=== PATIENT | male | born 1980 | race Caucasian/White ===

== ENCOUNTER 2017-09-16 16:37 | Emergency (ER) | payer OTHER ==
--- NOTE | 2017-09-16 18:05 | EDM.PDOC ---
ED HPI GENERAL MEDICAL PROBLEM - General Chief Complaint: Cardiovascular Problem Stated Complaint: HIGH BP Time Seen by Provider: 09/16/17 17:05 Source of Information: Reports: Patient History Limitations: Reports: No Limitations - History of Present Illness INITIAL COMMENTS - FREE TEXT/NARRATIVE: 37-year-old male presents for evaluation and treatment of high blood pressure. Patient reports over the last few days his blood pressure has been higher than normal. Reports a systolic of 155-159/84 last night. Patient reports the night before last, while he was sleeping, heart rate of 155. He states that when he awoke yesterday morning he had a notification on his Apple watch that his heart rate was 155 while he was sleeping. He is unsure exactly how long this lasted for. Of note he was drinking alcohol earlier that night. However, he did state that he "felt terrible "that night. Patient is currently complaining of discomfort to the left armpit. He states when he is high blood pressure he can feel it in his arms, legs and hips. He also reports that his fingertips feel numb. He states that he feels dizzy and fatigued. He denies any chest pain but reports a pressure. Reports shortness of breath that comes and goes. Denies any nausea, vomiting or syncope. He states that his face feels flushed and he has pressure behind his eyes. Patient does not have a primary care provider. He is not currently on any medications. Patient reports that over the last year he has switched jobs and now is more sedentary job. He states that he has gained about 30 pounds over the last year. 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 [No Known Home Meds] 09/16/17 [History] Past Medical History - Past Health History Medical/Surgical History: Denies Medical/Surgical History Social & Family History - Recreational Drug Use Recreational Drug Use: No ED ROS GENERAL - Review of Systems Review Of Systems: See Below Constitutional: Reports: Malaise, Fatigue, Weight Gain (30lbs over the last year ) Respiratory: Denies: Shortness of Breath Cardiovascular: Reports: Blood Pressure Problem. Denies: Chest Pain (denies pain but reports a pressure) GI/Abdominal: Denies: Nausea, Vomiting Skin: Reports: Erythema (reports feeling his face is flushed) Neurological: Reports: Dizziness, Numbness (finger tips). Denies: Headache ( reports pressure behind eyes), Syncope ED EXAM, GENERAL - Physical Exam Exam: See Below Exam Limited By: No Limitations General Appearance: Alert, WD/WN, No Apparent Distress Eye Exam: Bilateral Eye: Normal Inspection Ears: Normal External Exam Nose: Normal Inspection Throat/Mouth: Normal Inspection, Normal Lips, Normal Voice, No Airway Compromise Respiratory/Chest: No Respiratory Distress, Lungs Clear, Normal Breath Sounds Cardiovascular: Normal Peripheral Pulses, Regular Rate, Rhythm, No Murmur Peripheral Pulses: 2+: Radial (L), Radial (R) GI/Abdominal: Soft, Non-Tender Neurological: Alert, Oriented, Normal Cognition Psychiatric: Normal Affect, Normal Mood Skin Exam: Warm, Dry, Normal Color Course - Vital Signs Last Recorded V/S: Last Vital Signs Temp 36.6 C 09/16/17 16:49 Pulse 97 09/16/17 16:49 Resp 17 09/16/17 16:49 BP 136/86 09/16/17 16:49 Pulse Ox 96 09/16/17 16:49 Orthostatic Blood Pressure [ 117/95 Standing] Orthostatic Blood Pressure [ 122/83 Sitting] Orthostatic Blood Pressure [ 116/67 Supine] - Orders/Labs/Meds Labs: Laboratory Tests 09/16/17 09/16/17 Range/Units 17:55 17:55 WBC 8.66 (4.23-9.07) K/mm3 RBC 4.67 (4.63-6.08) M/mm3 Hgb 14.3 (13.7-17.5) gm/L Hct 41.6 (40.1-51.0) % MCV 89.1 (79.0-92.2) fl MCH 30.6 (25.7-32.2) pg MCHC 34.4 (32.2-35.5) g/dl RDW Std Deviation 43.3 (35.1-43.9) fL Plt Count 276 (163-337) K/mm3 MPV 9.0 L (9.4-12.3) fl Neut % (Auto) 51.3 (34.0-67.9) % Lymph % (Auto) 34.6 (21.8-53.1) % [place] % (Auto) 11.9 (5.3-12.2) % Eos % (Auto) 1.8 (0.8-7.0) Baso % (Auto) 0.3 (0.1-1.2) % Neut # (Auto) 4.43 (1.78-5.38) K/mm3 Lymph # (Auto) 3.00 (1.32-3.57) K/mm3 [place] # (Auto) 1.03 H (0.30-0.82) K/mm3 Eos # (Auto) 0.16 (0.04-0.54) K/mm3 Baso # (Auto) 0.03 (0.01-0.08) K/mm3 Sodium 141 (136-145) mEq/L Potassium 3.9 (3.5-5.1) mEq/L Chloride 106 (98-107) mEq/L Carbon Dioxide 26 (21-32) mEq/L Anion Gap 12.9 (5-15) BUN 19 H (7-18) mg/dL Creatinine 1.0 (0.7-1.3) mg/dL Est Cr Clr Drug Dosing 108.86 mL/min Estimated GFR (MDRD) > 60 (>60) mL/min BUN/Creatinine Ratio 19.0 H (14-18) Glucose 117 H (74-106) mg/dL Calcium 9.4 (8.5-10.1) mg/dL Total Bilirubin 0.3 (0.2-1.0) mg/dL AST 26 (15-37) U/L ALT 54 (16-63) U/L Alkaline Phosphatase 69 (46-116) U/L CK-MB (CK-2) 0.8 (0-3.6) ng/ml Troponin I < 0.017 (0.00-0.056) ng/mL Total Protein 6.7 (6.4-8.2) g/dl Albumin 4.0 (3.4-5.0) g/dl Globulin 2.7 gm/dL Albumin/Globulin Ratio 1.5 (1-2) TSH 3rd Generation 1.015 (0.358-3.74) uIU/mL - Radiology Interpretation Free Text/Narrative:: Chest x-ray shows no acute intrathoracic process. - Re-Assessments/Exams Free Text/Narrative Re-Assessment/Exam: 09/16/17 19:40 I reviewed the labs, EKG and chest x-ray with the patient. His blood pressure has come down significantly without any intervention. Systolic in the 120s to 110s. I encouraged him to check his blood pressure daily, record this and establish with a primary care provider. Discharge instructions as documented. Departure - Departure Time of Disposition: 19:43 Disposition: Home, Self-Care 01 Condition: Fair Clinical Impression: High blood pressure Instructions: Hypertension, [id number] Referrals: PCP,None [Primary Care Provider] - Marc Vogel PA-C [Physician [employer] Sewing Machine Operator] - Forms: ED Department Discharge Additional Instructions: Recommend checking your blood pressure daily and recording this. Recommend establishing with a primary care provider. Follow-up with them within 2 weeks for recheck of your symptoms. Recommend Marc Vogel PA-C at the [facility]. Call [phone] to schedule with him. Please return to the ER if symptoms change or worsen.
--- NOTE | 2017-09-17 06:36 | CR ---
Chest: Portable view of the chest was obtained. Comparison: Prior chest x-ray of 06/10/11. Heart size and mediastinum are normal. Lungs are clear. Bony structures are grossly intact. Impression: 1. Nothing acute is identified on portable chest x-ray. Diagnostic code #1
== END 2017-09-16 19:54 | disposition home or self-care (01) ==
LOC: JD.ED 16:37
DX: R03.0 Elevated blood-pressure reading, without diagnosis of hypertension (principal)
CPT/HCPCS: 36415; 71045; 71045-26; 80053; 82553; 84443; 84484; 85025; 93005; 99284-25

== ENCOUNTER 2019-09-27 16:32 | Emergency (ER) | payer BC, OTHER ==
[2019-09-27] MEDS: Sodium Chloride 0.9% 10 ML Syringe FLUSH PRN ×3 (17:12→20:10)
--- NOTE | 2019-09-27 17:40 | CR ---
Chest: 2 views of the chest were obtained. Comparison: Prior chest x-ray of 09/16/17. Heart size and mediastinum are normal. Lungs are clear with no acute parenchymal change. Bony structures appear unremarkable. Impression: 1. Nothing acute is appreciated on 2 view chest x-ray. Diagnostic code #1 Study was dictated in [place] Standard Time
[2019-09-27] MEDS ORDERED: Iopamidol 755 Mg/ML 100 ML Bottle IVPUSH ONE ×2 (18:12→20:09)
[2019-09-27] MEDS ORDERED: Sodium Chloride 0.9% 10 ML Syringe FLUSH PRN ×2 (18:12→20:09)
[2019-09-27] MEDS: Sodium Chloride 0.9% 100 ML IV SCH ×2 (18:57→20:10)
--- NOTE | 2019-09-27 19:17 | EDM.PDOC ---
ED HPI GENERAL MEDICAL PROBLEM - General Chief Complaint: Chest Pain Stated Complaint: CHEST PAIN Time Seen by Provider: 09/27/19 16:47 Source of Information: Reports: Patient History Limitations: Reports: No Limitations - History of Present Illness INITIAL COMMENTS - FREE TEXT/NARRATIVE: The patient presents with left sided chest pain. He also has pain to his left neck and arm. This has been coming and going for about a week. He has some shortness of breath at times. He has no fever, chills, cough, congestion, runny nose, abdominal pain, nausea or vomiting. He has no history of heart problems but he does have a family history. He has no history of DVT or PE. Onset: Gradual Duration: Week(s): Location: Reports: Chest Quality: Reports: Sharp Severity: Moderate Improves with: Reports: None Worsens with: Reports: None Associated Symptoms: Reports: Chest Pain. Denies: Cough, Fever/Chills, Headaches, Nausea/Vomiting, Shortness of Breath Left Upper Chest Pain Score (Numeric/FACES): 5 - Related Data Allergies Allergy/AdvReac Type Severity Reaction Status Date / Time Sulfa (Sulfonamide Allergy Hives Verified 09/27/19 16:48 Antibiotics) Home Meds: Home Meds . [No Known Home Meds] 09/16/17 [History] Past Medical History - Past Health History Medical/Surgical History: Denies Medical/Surgical History Cardiovascular History: Reports: Other (See Below) Other Cardiovascular History: pleurisy Social & Family History - Tobacco Use Smoking Status *Q: Never Smoker - Recreational Drug Use Recreational Drug Use: No ED ROS GENERAL - Review of Systems Review Of Systems: See Below Constitutional: Reports: No Symptoms HEENT: Reports: No Symptoms Respiratory: Reports: No Symptoms Cardiovascular: Reports: Chest Pain Endocrine: Reports: No Symptoms GI/Abdominal: Reports: No Symptoms : Reports: No Symptoms Musculoskeletal: Reports: No Symptoms ED EXAM, GENERAL - Physical Exam Exam: See Below Exam Limited By: No Limitations General Appearance: Alert, No Apparent Distress Ears: Normal External Exam Nose: Normal Inspection Head: Atraumatic, Normocephalic Neck: Normal Inspection Respiratory/Chest: No Respiratory Distress, Lungs Clear, Normal Breath Sounds Cardiovascular: Regular Rate, Rhythm, No Edema, No Murmur GI/Abdominal: Soft, Non-Tender, No Organomegaly, No Mass Back Exam: Normal Inspection Extremities: Normal Inspection Neurological: Alert, Oriented, No Motor/Sensory Deficits EKG INTERPRETATION EKG Date: 09/27/19 Time: 16:59 Rhythm: NSR Rate (Beats/Min): 92 [place]: Normal P-Wave: Present QRS: Normal ST-T: Normal QT: Normal Course - Vital Signs Last Recorded V/S: Last Vital Signs Temp 98.9 F 09/27/19 16:45 Pulse 90 09/27/19 16:45 Resp 16 09/27/19 16:45 BP 169/109 H 09/27/19 16:45 Pulse Ox 99 09/27/19 16:45 - Orders/Labs/Meds Orders: Active Orders 24 hr Category Date Time Status Cardiac Monitoring [RC] . DIRECTED Care 09/27/19 16:51 Active EKG Documentation Completion [RC] STAT Care 09/27/19 16:51 Active Peripheral IV Care [RC] . DIRECTED Care 09/27/19 16:51 Active Sodium Chloride 0.9% [Normal Saline] 100 ml Med 09/27/19 18:15 Active IV ASDIRECTED Sodium Chloride 0.9% [Normal Saline] 100 ml Med 09/27/19 20:15 Active IV ASDIRECTED Sodium Chloride 0.9% [Saline Flush] Med 09/27/19 16:51 Active 10 ml FLUSH ASDIRECTED PRN Sodium Chloride 0.9% [Saline Flush] Med 09/27/19 18:12 Active 10 ml FLUSH ONETIME PRN Sodium Chloride 0.9% [Saline Flush] Med 09/27/19 20:09 Active 10 ml FLUSH ONETIME PRN Peripheral IV Insertion Adult [OM.PC] Stat Oth 09/27/19 16:51 Ordered Medication Orders Sodium Chloride (Normal Saline) 100 mls @ 60 mls/hr IV ASDIRECTED MAYCOL Last Admin: 09/27/19 20:10 Dose: 60 mls/hr Infusion: 09/27/19 20:10 Dose: 60 mls/hr Admin: 09/27/19 18:57 Dose: 60 mls/hr Sodium Chloride (Normal Saline) 100 mls @ 60 mls/hr IV ASDIRECTED MAYCOL Sodium Chloride (Saline Flush) 10 ml FLUSH ASDIRECTED PRN PRN Reason: Keep Vein Open Last Admin: 09/27/19 20:10 Dose: 10 ml Admin: 09/27/19 18:57 Dose: 10 ml Admin: 09/27/19 17:12 Dose: 10 ml Sodium Chloride (Saline Flush) 10 ml FLUSH ONETIME PRN PRN Reason: Keep Vein Open Sodium Chloride (Saline Flush) 10 ml FLUSH ONETIME PRN PRN Reason: Keep Vein Open Labs: Laboratory Tests 09/27/19 09/27/19 09/27/19 Range/Units 16:58 16:58 16:58 WBC 7.75 (4.23-9.07) K/mm3 RBC 4.82 (4.63-6.08) M/mm3 Hgb 14.9 (13.7-17.5) gm/dl Hct 43.6 (40.1-51.0) % MCV 90.5 (79.0-92.2) fl MCH 30.9 (25.7-32.2) pg MCHC 34.2 (32.2-35.5) g/dl RDW Std Deviation 43.7 (35.1-43.9) fL Plt Count 285 (163-337) K/mm3 MPV 8.9 L (9.4-12.3) fl Neut % (Auto) 47.7 (34.0-67.9) % Lymph % (Auto) 37.0 (21.8-53.1) % [place] % (Auto) 12.3 H (5.3-12.2) % Eos % (Auto) 2.6 (0.8-7.0) Baso % (Auto) 0.3 (0.1-1.2) % Neut # (Auto) 3.70 (1.78-5.38) K/mm3 Lymph # (Auto) 2.87 (1.32-3.57) K/mm3 [place] # (Auto) 0.95 H (0.30-0.82) K/mm3 Eos # (Auto) 0.20 (0.04-0.54) K/mm3 Baso # (Auto) 0.02 (0.01-0.08) K/mm3 D-Dimer, Quantitative 0.70 H (0.19-0.50) mg/L Sodium 140 (136-145) mEq/L Potassium 3.6 (3.5-5.1) mEq/L Chloride 102 (98-107) mEq/L Carbon Dioxide 29 (21-32) mEq/L Anion Gap 12.6 (5-15) BUN 22 H (7-18) mg/dL Creatinine 1.2 (0.7-1.3) mg/dL Est Cr Clr Drug Dosing 88.92 mL/min Estimated GFR (MDRD) > 60 (>60) mL/min BUN/Creatinine Ratio 18.3 H (14-18) Glucose 112 H (74-106) mg/dL Calcium 9.1 (8.5-10.1) mg/dL Total Bilirubin 0.3 (0.2-1.0) mg/dL AST 21 (15-37) U/L ALT 53 (16-63) U/L Alkaline Phosphatase 75 (46-116) U/L Troponin I < 0.017 (0.00-0.056) ng/mL Total Protein 7.3 (6.4-8.2) g/dl Albumin 4.0 (3.4-5.0) g/dl Globulin 3.3 gm/dL Albumin/Globulin Ratio 1.2 (1-2) Meds: Medications Generic Name Dose Route Start Last Admin Trade Name Freq PRN Reason Stop Dose Admin Sodium Chloride 100 mls @ 60 mls/hr 09/27/19 18:15 09/27/19 20:10 Normal Saline IV 60 mls/hr ASDIRECTED MAYCOL Administration Sodium Chloride 100 mls @ 60 mls/hr 09/27/19 20:15 Normal Saline IV ASDIRECTED MAYCOL Sodium Chloride 10 ml 09/27/19 16:51 09/27/19 20:10 Saline Flush FLUSH 10 ml ASDIRECTED PRN Administration Keep Vein Open Sodium Chloride 10 ml 09/27/19 18:12 Saline Flush FLUSH ONETIME PRN Keep Vein Open Sodium Chloride 10 ml 09/27/19 20:09 Saline Flush FLUSH ONETIME PRN Keep Vein Open Discontinued Medications Generic Name Dose Route Start Last Admin Trade Name Freq PRN Reason Stop Dose Admin Iopamidol 100 ml 09/27/19 18:12 09/27/19 18:57 [id number] (76%) IVPUSH 09/27/19 18:13 100 ml ONETIME ONE Administration Iopamidol 100 ml 09/27/19 20:09 09/27/19 20:10 [id number] (76%) IVPUSH 09/27/19 20:10 100 ml ONETIME ONE Administration - Re-Assessments/Exams Free Text/Narrative Re-Assessment/Exam: 09/27/19 19:19 I ordered an IV saline lock, EKG, CXR and labs. His EKG shows a NSR with no acute changes. His CXR looks good. His CBC and CMP look good. His troponin is negative. His D-dimer was elevated at 0.7. I have ordered a CT angio of his chest. 09/27/19 20:[address] shows no findings of pulmonary emboli within the main or segmental branches. Smaller distal subsegmental pulmonary emboli could be missed. Nothing acute is appreciated on CT study of the chest. Departure - Departure Time of Disposition: 20:30 Disposition: Home, Self-Care 01 Condition: Good Clinical Impression: Atypical chest pain, Pleurisy Referrals: PCP,Chayito [Primary Care Provider] - Nisreen Zambrano EHS ENGINEER [Nurse Practitioner] - 1 Week Forms: ED Department Discharge Additional Instructions: Take tylenol or motrin for pain. Follow up with Nisreen Zambrano within a week. Please return if you are worse. Sepsis Event Note - Evaluation Sepsis Screening Result: No Definite Risk - Focused Exam Vital Signs: Vital Signs Temp Pulse Resp BP Pulse Ox 09/27/19 16:45 98.9 F 90 16 169/109 H 99 Date Exam was Performed: 09/27/19 Time Exam was Performed: 20:16 - My Orders Last 24 Hours: My Active Orders 09/27/19 16:51 Cardiac Monitoring [RC] . DIRECTED EKG Documentation Completion [RC] STAT Peripheral IV Care [RC] . DIRECTED Sodium Chloride 0.9% [Saline Flush] 10 ml FLUSH ASDIRECTED PRN Peripheral IV Insertion Adult [OM.PC] Stat 09/27/19 18:12 Sodium Chloride 0.9% [Saline Flush] 10 ml FLUSH ONETIME PRN 09/27/19 18:15 Sodium Chloride 0.9% [Normal Saline] 100 ml IV ASDIRECTED 09/27/19 20:09 Sodium Chloride 0.9% [Saline Flush] 10 ml FLUSH ONETIME PRN 09/27/19 20:15 Sodium Chloride 0.9% [Normal Saline] 100 ml IV ASDIRECTED - Assessment/Plan Last 24 Hours: My Active Orders 09/27/19 16:51 Cardiac Monitoring [RC] . DIRECTED EKG Documentation Completion [RC] STAT Peripheral IV Care [RC] . DIRECTED Sodium Chloride 0.9% [Saline Flush] 10 ml FLUSH ASDIRECTED PRN Peripheral IV Insertion Adult [OM.PC] Stat 09/27/19 18:12 Sodium Chloride 0.9% [Saline Flush] 10 ml FLUSH ONETIME PRN 09/27/19 18:15 Sodium Chloride 0.9% [Normal Saline] 100 ml IV ASDIRECTED 09/27/19 20:09 Sodium Chloride 0.9% [Saline Flush] 10 ml FLUSH ONETIME PRN 09/27/19 20:15 Sodium Chloride 0.9% [Normal Saline] 100 ml IV ASDIRECTED
--- NOTE | 2019-09-27 20:11 | CT ---
CT chest Technique: Multiple axial sections through the chest were obtained. Initial study had difficulties with the IV resulting in suboptimal pulmonary artery opacification. Study was repeated. Findings: Pulmonary arteries are moderately well-opacified. No filling defects are seen within the main or segmental branches. Smaller distal subsegmental pulmonary emboli could be missed. Aorta shows no aneurysm. No pericardial thickening is seen. Visualized upper abdominal structures shows no discrete abnormality. Lungs are clear. No acute parenchymal change is appreciated. No pleural effusions are noted. Bone window settings were reviewed which shows no acute bony finding. Impression: 1. No findings of pulmonary emboli within the main or segmental branches. Smaller distal subsegmental pulmonary emboli could be missed. 2. Nothing acute is appreciated on CT study of the chest. Diagnostic code #1 Study was dictated in [place] Standard Time
[2019-09-27] MEDS ORDERED: Sodium Chloride 0.9% 100 ML IV SCH (20:15)
== END 2019-09-27 20:20 | disposition home or self-care (01) ==
LOC: JD.ED 16:32
DX: R09.1 Pleurisy (principal); Z88.2 Allergy status to sulfonamides
CPT/HCPCS: 36415; 71046; 71275; 80053; 84484; 85025; 85379; 93005; 99285; J7050; Q9967; 93010; 99284

== ENCOUNTER 2020-06-04 11:57 | Emergency (ER) | payer BC ==
[2020-06-04] MEDS ORDERED: Diphtheria,Pertussis(Acell),Tetanus Vaccine 0.5 ML Syringe IM ONE (12:42)
[2020-06-04] MEDS ORDERED: Lidocaine 1% 10 ML MDV INJECT ONE (12:42)
--- NOTE | 2020-06-04 12:49 | EDM.PDOC ---
ED HPI GENERAL MEDICAL PROBLEM - General Chief Complaint: Laceration Stated Complaint: LT INDEX FINGER LAC Time Seen by Provider: 06/04/20 12:19 Source of Information: Reports: Patient, RN Notes Reviewed History Limitations: Reports: No Limitations - History of Present Illness INITIAL COMMENTS - FREE TEXT/NARRATIVE: Patient is a 39-year-old male who presents to the ED for evaluation of a left index finger laceration. He states that 1 hour prior to arrival, he was putting 10 on his roof, and ended up catching the backside of his left pointer finger with a piece of 10. This resulted in a roughly 4.5 cm laceration that is V- shaped, this starts on the medial portion of the posterior index finger, extends down to just by the DIP joint, and then extends distally down the fingertip, and this involves the most lateral portion of the nail. Patient has no numbness or tingling in the area, states he still can move his finger in all range of motion, he does have good strength, there is no obvious tendon involvement at this time. Patient notes he is not up-to-date on his tetanus. Patient denies any other sick-like symptoms, fever/chills, cough/shortness of breath, nause a/vomiting/diarrhea. Left Finger-Index Pain Score (Numeric/FACES): 4 - Related Data Allergies Allergy/AdvReac Type Severity Reaction Status Date / Time Sulfa (Sulfonamide Allergy Hives Verified 06/04/20 12:22 Antibiotics) Home Meds: Home Meds . [No Known Home Meds] 09/16/17 [History] Past Medical History - Past Health History Medical/Surgical History: Denies Medical/Surgical History Cardiovascular History: Reports: Other (See Below) Other Cardiovascular History: pleurisy Social & Family History - Tobacco Use Tobacco Use Status *Q: Never Tobacco User Second Hand Smoke Exposure: No - Caffeine Use Caffeine Use: Reports: Coffee, Energy Drinks - Recreational Drug Use Recreational Drug Use: No ED ROS GENERAL - Review of Systems Review Of Systems: Comprehensive ROS is negative, except as noted in HPI. ED EXAM, SKIN/RASH Exam: See Below Exam Limited By: No Limitations General Appearance: Alert, WD/WN, No Apparent Distress Respiratory/Chest: No Respiratory Distress, Lungs Clear, Normal Breath Sounds, No Accessory Muscle Use, Chest Non-Tender Cardiovascular: Normal Peripheral Pulses, Regular Rate, Rhythm, No Murmur Peripheral Pulses: 2+: Radial (L), Radial (R) Extremities: Normal Inspection, Normal Range of Motion, Normal Capillary Refill Neurological: Alert, Oriented, Normal Cognition, No Motor/Sensory Deficits Psychiatric: Normal Affect, Normal Mood Skin: Warm, Dry, Normal Color, No Rash, Wound/Incision (4.5 cm v shaped wound to posterior left index finger. Starts medially on distal finger, extends to surface of DIP joint and then turns and continues laterally on finger towards fingertip- this involves the lateral portion of nail) ED SKIN PROCEDURES - Laceration/Wound Repair Left Posterior Distal Digit - 2nd (Index) Appearance: Subcutaneous, Irregular (v-shaped), Clean Distal NVT: Neuro & Vascular Intact, No Tendon Injury Anesthetic Type: Local Local Anesthesia - Lidocaine (Xylocaine): 1% Plain Local Anesthetic Volume: 4cc Skin Prep: Chlorhexidine (Hibiciens), Saline Exploration/Debridement/Repair: Wound Explored, In a Bloodless Field, Explored to Base, No Foreign Material Found Closed with: Sutures, Dermabond (applied to nail portion of wound (1cm of total wound length)) Lac/Wound length In cm: 4.5 Suture Size: 4-0 # of Sutures: 5 Suture Type: Prolene, Interrupted, Simple Sterile Dressing Applied: Nurse Tetanus Status Addressed: Yes (pt did check clinical records and states that he did have a Tdap in 2014.) Complications: No Course - Vital Signs Last Recorded V/S: Last Vital Signs Temp 97.9 F 06/04/20 12:19 Pulse 113 H 06/04/20 12:19 Resp 18 06/04/20 12:19 BP 173/110 H 06/04/20 12:19 Pulse Ox 99 06/04/20 12:19 - Orders/Labs/Meds Orders: Active Orders 24 hr Category Date Time Status Vaccines to be Administered [RC] PER UNIT ROUTINE Care 06/04/20 12:42 Ordered Meds: Medications Discontinued Medications Generic Name Dose Route Start Last Admin Trade Name Freq PRN Reason Stop Dose Admin Diphtheria/Tetanus/Acell Pertussis 0.5 ml 06/04/20 12:42 Adacel IM 06/04/20 12:43 .ONCE ONE Lidocaine HCl 10 ml 06/04/20 12:42 Xylocaine 1% INJECT 06/04/20 12:43 ONETIME ONE Departure - Departure Time of Disposition: 12:49 Disposition: Home, Self-Care 01 Condition: Good Clinical Impression: Laceration of finger of left hand with damage to nail Qualifiers: Encounter type: initial encounter Finger: index finger Foreign body presence: without foreign body Qualified Code(s): S61.311A - Laceration without foreign body of left index finger with damage to nail, initial encounter - Discharge Information *PRESCRIPTION DRUG MONITORING PROGRAM REVIEWED*: No *COPY OF PRESCRIPTION DRUG MONITORING REPORT IN PATIENT ALFONSO: No Instructions: Sutures, [place], or Adhesive Wound Closure, [id number], Nail Bed Injury, [id number] Referrals: Bairon Lai Jr, MD [Primary Care Provider] - Forms: ED Department Discharge Additional Instructions: You have been evaluated in the ED for your laceration. Sutures will need to stay in for 10-14 days. You may return to the ED or any cl inic for removal. The part of your wound that involved the nail was repaired with Dermabond, this is medical grade skin adhesive, and will eventually wear itself off. As the wound involves the lateral portion of your nail, you may end up not losing the entire nail, but be careful to not catch it on clothing or other like materials as to avoid the possibility of snagging it on things until the nail grows out. Please keep this area clean and dry, you may cleanse with regular soap and water. No vigorous scrubbing. Please try to avoid submerging the affected area in water for prolonged periods of time until the sutures are removed. Watch out for signs of infection like increased redness, swelling, pain at the laceration site, or if you should develop any fevers or chills. Please return to ED if your symptoms change or worsen. Sepsis Event Note (ED) - Evaluation Sepsis Screening Result: No Definite Risk - Focused Exam Vital Signs: Vital Signs Temp Pulse Resp BP Pulse Ox 06/04/20 12:19 97.9 F 113 H 18 173/110 H 99 - My Orders Last 24 Hours: My Active Orders 06/04/20 12:42 Vaccines to be Administered [RC] PER UNIT ROUTINE - Assessment/Plan Last 24 Hours: My Active Orders 06/04/20 12:42 Vaccines to be Administered [RC] PER UNIT ROUTINE
== END 2020-06-04 13:55 | disposition home or self-care (01) ==
LOC: JD.ED 11:57
DX: S61.311A Laceration without foreign body of left index finger with damage to nail, initial encounter (principal); Z88.2 Allergy status to sulfonamides; W26.8XXA Contact with other sharp object(s), not elsewhere classified, initial encounter
CPT/HCPCS: 12002; 99282; J2001